=== PATIENT | female | born 1970 | race Hispanic/Latino ===

== ENCOUNTER 2022-06-02 23:21 | Emergency (ER) | payer SELFPAY ==
[2022-06-03 01:14] LABS: Absolute Lymphocytes (CBC) 2.6 K/uL (0.7-4.9); Hematocrit 42.5 % (36.0-45.0); Lymphocytes % 21.4 % (15.3-44.8); MPV 7.3 fL (7.6-11.3); RBC Red Blood Cell Count 4.72 M/uL (3.86-4.86)
[2022-06-03 01:31] LABS: Potassium 3.4 mmol/L (3.5-5.1); Troponin High Sensitivity 21.4 pg/mL (<58.9)
[2022-06-03] MEDS ORDERED: HYDRALAZINE HCL 20 MG/ML VIAL ONE (01:39)
[2022-06-03] MEDS ORDERED: NA CHLORIDE 0.9% 500 ML ONE (02:16)
[2022-06-03] MEDS ORDERED: METOPROLOL TARTRATE 5 MG/5 ML INJ IV ONE (02:44)
[2022-06-03] MEDS ORDERED: ACETAMINOPHEN 500 MG TAB ONE (03:41)
[2022-06-03] MEDS ORDERED: METOPROLOL TAR 50 MG TAB ONE (03:48)
--- NOTE | 2022-06-03 05:52 | EDPHYS ---
Physician Documentation [facility] Name: Evelyn Nunez Age: 51 yrs Sex: Female : 1970 Arrival Date: 06/02/2022 Time: 23:25 Bed 7 Private MD: ED Physician Jeramy Vizcaino HPI: 06/03 05:53 This 51 yrs old Female presents to ER via Ambulatory with complaints of High kdr Blood Pressure. 05:53 The patient has elevated blood pressure and discovered this at home. Onset: The kdr symptoms/episode began/occurred at an unknown time. Modifying factors: The symptoms are aggravated by Managing medications, she was recent recently started on amlodipine which has caused her blood pressure to increase. Associated signs and symptoms: Pertinent positives: headache, Pertinent negatives: chest pain, dizziness, dyspnea, lightheadedness, nausea. Severity of symptoms: At its worst the blood pressure was moderate, severe, just prior to arrival, in the emergency department the blood pressure is improved, mildly. The patient has experienced similar episodes in the past, a few times. The patient has been recently seen by a physician: Dr. Pulliam. 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 - Social history:: Smoking status: Patient denies any tobacco usage or history of. ROS: 05:53 Constitutional: Negative for fever, chills, and weight loss, Eyes: Negative for injury, kdr pain, redness, and discharge, Neck: Negative for injury, pain, and swelling, Cardiovascular: Negative for chest pain, palpitations, and edema, Respiratory: Negative for shortness of breath, cough, wheezing, and pleuritic chest pain, Abdomen/GI: Negative for abdominal pain, nausea, vomiting, diarrhea, and constipation, Back: Negative for injury and pain, : Negative for injury, bleeding, discharge, and swelling, MS/Extremity: Negative for injury and deformity, Skin: Negative for injury, rash, and discoloration, Neuro: Negative for headache, weakness, numbness, tingling, and seizure activity. Psych: Negative for depression, anxiety, suicide ideation, homicidal ideation, and hallucinations, Allergy/Immunology: Negative for hives, rash, and allergies, Endocrine: Negative for neck swelling, polydipsia, polyuria, polyphagia, and marked weight changes, Hematologic/Lymphatic: Negative for swollen nodes, abnormal bleeding, and unusual bruising. 05:53 Neuro: Positive for headache. Exam: 05:56 Constitutional: This is a well developed, well nourished patient who is awake, alert, kdr and in no acute distress. Head/Face: Normocephalic, atraumatic. Eyes: Pupils equal round and reactive to light, extra-ocular motions intact. Lids and lashes normal. Conjunctiva and sclera are non-icteric and not injected. Cornea within normal limits. Periorbital areas with no swelling, redness, or edema. Neck: Trachea midline, no thyromegaly or masses palpated, and no cervical lymphadenopathy. Supple, full range of motion without nuchal rigidity, or vertebral point tenderness. No Meningismus. Chest/axilla: Normal chest wall appearance and motion. Nontender with no deformity. No lesions are appreciated. Cardiovascular: Regular rate and rhythm with a normal S1 and S2. No gallops, murmurs, or rubs. Normal PMI, no JVD. No pulse deficits. Respiratory: Lungs have equal breath sounds bilaterally, clear to auscultation and percussion. No rales, rhonchi or wheezes noted. No increased work of breathing, no retractions or nasal flaring. Abdomen/GI: Soft, non-tender, with normal bowel sounds. No distension or tympany. No guarding or rebound. No evidence of tenderness throughout. Back: No spinal tenderness. No costovertebral tenderness. Full range of motion. Skin: Warm, dry with normal turgor. Normal color with no rashes, no lesions, and no evidence of cellulitis. MS/ Extremity: Pulses equal, no cyanosis. Neurovascular intact. Full, normal range of motion. Neuro: Awake and alert, GCS 15, oriented to person, place, time, and situation. Cranial nerves II-XII grossly intact. Motor strength 5/5 in all extremities. Sensory grossly intact. Cerebellar exam normal. Normal gait. Psych: Awake, alert, with orientation to person, place and time. Behavior, mood, and affect are within normal limits. 07:05 ECG was reviewed by the Attending Physician. kdr Vital Signs: 00:07 BP 195 / 104; Pulse 90; Resp 20; Temp 98.2; Pulse Ox 100% ; Weight 61.69 kg; Height 4 bh1 ft. 11 in. (149.86 cm); Pain 0/10; 01:29 BP 201 / 97; Pulse 81; Resp 18; Pulse Ox 99% on R/A; kd3 02:14 BP 182 / 91; Pulse 134; Resp 21; Pulse Ox 100% on R/A; kd3 05:39 BP 117 / 61; Pulse 79; Resp 18; Pulse Ox 95% on R/A; kd3 00:07 Body Mass Index 27.47 (61.69 kg, 149.86 cm) 1 MDM: 05:51 Patient medically screened. kdr 05:56 Data reviewed: vital signs, nurses notes, lab test result(s), radiologic studies. ED kdr course: Initially attempted to use hydralazine to control her blood pressure however she felt poorly after that and her blood pressure in fact elevated. 06/03 00:32 Order name: Basic Metabolic Panel; Complete Time: 02:08 kdr 06/03 00:32 Order name: CBC with Diff; Complete Time: 02:08 kdr 06/03 00:32 Order name: NT PRO-BNP; Complete Time: 02:08 kdr 06/03 00:32 Order name: Troponin HS; Complete Time: 02:08 kdr 06/03 00:32 Order name: XRAY Chest (1 view) kdr 06/03 02:11 Order name: D-Dimer; Complete Time: 04:09 kd3 06/03 00:32 Order name: EKG; Complete Time: 00:34 kdr 06/03 00:32 Order name: Cardiac monitoring; Complete Time: 01:01 kdr 06/03 01:25 Order name: CT Head Brain wo Cont kdr 06/03 00:32 Order name: EKG - Nurse/Tech; Complete Time: 01:29 kdr 06/03 00:32 Order name: IV Saline Lock; Complete Time: 01:01 kdr 06/03 00:32 Order name: Labs collected and sent; Complete Time: 01:01 kdr 06/03 00:32 Order name: O2 Per Protocol; Complete Time: kdr 06/03 00:32 Order name: O2 Sat Monitoring; Complete Time: kdr EC:05 Rate is 69 beats/min. Rhythm is regular, Sinus Rhythm with No ectopy. QRS Willis is kdr Normal. MS interval is normal. QRS interval is normal. QT interval is normal. Clinical impression: NSR w/ Non-specific ST/T Changes. Administered Medications: 01:35 Drug: hydrALAZINE 20 mg Route: IVP; Site: right forearm; kd3 02:13 Drug: NS 0.9% 500 ml Route: IV; Rate: bolus; Site: right antecubital; kd3 02:40 Drug: Lopressor (metoprolol) 5 mg {Note: pulse 127 BP 183/91.} Route: IVP; Site: right kl forearm; 02:49 Drug: Lopressor (metoprolol) 5 mg {Note: pulse 95 BP 163/92.} Route: IVP; Site: right kl forearm; 03:41 Drug: Lopressor (metoprolol TARTRATE) 50 mg Route: PO; kl 03:42 Drug: Tylenol 1000 mg Route: PO; Disposition Summary: 06/03/22 05:51 Discharge Ordered Location: Home kdr Problem: an acute exacerbation kdr Symptoms: have improved kdr Condition: Stable kdr Diagnosis - Hypertensive heart disease without heart failure kdr Followup: kdr - With: Private Physician - When: 2 - 3 days - Reason: If symptoms return, Further diagnostic work-up, Recheck today's complaints, Continuance of care, Re-evaluation by your physician Discharge Instructions: - Discharge Summary Sheet kdr - Hypertension, Adult, [id number] kdr Forms: - Medication Reconciliation Form kdr - Thank You Letter kdr Prescriptions: - Lopressor 50 mg Oral Tablet - take 1 tablet by ORAL route every 24 hours; 30 tablet; Refills: 0, Product kdr Selection Permitted Signatures: Dispatcher [employer] Brittani Mac RN RN kl Rittger, Kevin, MD MD kdr Doucette, Kyli, RN RN [email or web address] Huong Vasquez PA PA [email or web address] Leida Mejia RN RN bh1
--- NOTE | 2022-06-03 05:52 | ER ---
Nurse's Notes [facility] Name: Evelyn Nunez Age: 51 yrs Sex: Female : 1970 Arrival Date: 06/02/2022 Time: 23:25 Bed 7 Private MD: Diagnosis: Hypertensive heart disease without heart failure Presentation: 06/03 00:04 Chief complaint: Patient states: ELEVATED BP AT HOME. Coronavirus screen: Vaccine [facility] status: Patient reports being unvaccinated. At this time, the client does not indicate any symptoms associated with coronavirus-19. Ebola Screen: Patient negative for fever greater than or equal to 101.5 degrees Fahrenheit, and additional compatible Ebola Virus Disease symptoms. Initial Sepsis Screen: Does the patient meet any 2 criteria? No. Patient's initial sepsis screen is negative. Does the patient have a suspected source of infection? No. Patient's initial sepsis screen is negative. Risk Assessment: Do you want to hurt yourself or someone else? Patient reports no desire to harm self or others. Onset of symptoms was June 03, 2022. 00:04 Method Of Arrival: Ambulatory [facility] 00:04 Acuity: ISIS 3 [facility] Triage Assessment: 00:05 General: Appears in no apparent distress. Behavior is calm, cooperative, appropriate [facility] for age. Pain: Complains of pain in HEADACHE. 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 - Social history:: Smoking status: Patient denies any tobacco usage or history of. Screenin:30 Abuse screen: Denies threats or abuse. Denies injuries from another. Nutritional kd3 screening: No deficits noted. Tuberculosis screening: No symptoms or risk factors identified. Fall Risk IV access (20 points). Assessment: 01:01 General: Appears in no apparent distress. comfortable, Behavior is calm, cooperative. kl Pain: Denies pain. Neuro: No deficits noted. Carmen Agitation-Sedation Scale (RASS): 0 - Alert and Calm Level of Consciousness is awake, alert, obeys commands, Oriented to person, place, time, situation, Systems Operator are equal bilaterally Moves all extremities. Gait is steady. Cardiovascular: No deficits noted. Denies chest pain. Respiratory: No deficits noted. Reports Airway is patent Trachea midline Respiratory effort is even, unlabored, Respiratory pattern is regular, symmetrical. GI: No deficits noted. No signs and/or symptoms were reported involving the gastrointestinal system. : No deficits noted. No signs and/or symptoms were reported regarding the genitourinary system. EENT: No deficits noted. No signs and/or symptoms were reported regarding the EENT system. Derm: No deficits noted. No signs and/or symptoms reported regarding the dermatologic system. Musculoskeletal: No deficits noted. No signs and/or symptoms reported regarding the musculoskeletal system. Vital Signs: 00:07 BP 195 / 104; Pulse 90; Resp 20; Temp 98.2; Pulse Ox 100% ; Weight 61.69 kg; Height 4 1 ft. 11 in. (149.86 cm); Pain 0/10; 01:29 BP 201 / 97; Pulse 81; Resp 18; Pulse Ox 99% on R/A; kd3 02:14 BP 182 / 91; Pulse 134; Resp 21; Pulse Ox 100% on R/A; kd3 05:39 BP 117 / 61; Pulse 79; Resp 18; Pulse Ox 95% on R/A; kd3 00:07 Body Mass Index 27.47 (61.69 kg, 149.86 cm) [facility] ED Course: 06/02 23:25 Patient arrived in ED. bp1 06/03 00:05 Triage completed. bh1 00:05 Arm band placed on right wrist. bh1 00:31 Jeramy Vizcaino MD is Attending Physician. kdr 00:32 Mary Grace Hurtado RN is Primary Nurse. kd3 01:01 Basic Metabolic Panel Sent. kl 01:01 CBC with Diff Sent. kl 01:01 NT PRO-BNP Sent. kl 01:01 Troponin HS Sent. kl 01:03 Inserted saline lock: 20 gauge in right forearm, using aseptic technique. kl 01:09 XRAY Chest (1 view) In Process Unspecified. EDMS 01:30 Patient has correct armband on for positive identification. kd3 01:30 No provider procedures requiring assistance completed. kd3 02:33 CT Head Brain wo Cont In Process Unspecified. EDMS 06:05 IV discontinued, intact, bleeding controlled, No redness/swelling at site. Pressure kl dressing applied. Administered Medications: 01:35 Drug: hydrALAZINE 20 mg Route: IVP; Site: right forearm; kd3 02:13 Drug: NS 0.9% 500 ml Route: IV; Rate: bolus; Site: right antecubital; kd3 02:40 Drug: Lopressor (metoprolol) 5 mg {Note: pulse 127 BP 183/91.} Route: IVP; Site: right kl forearm; 02:49 Drug: Lopressor (metoprolol) 5 mg {Note: pulse 95 BP 163/92.} Route: IVP; Site: right kl forearm; 03:41 Drug: Lopressor (metoprolol TARTRATE) 50 mg Route: PO; kl 03:42 Drug: Tylenol 1000 mg Route: PO; kl Medication: 01:30 VIS not applicable for this client. kd3 Outcome: 05:51 Discharge ordered by . kdr 06:05 Discharged to home ambulatory, with family. kl 06:05 Condition: improved 06:05 Discharge instructions given to patient, Instructed on discharge instructions, follow up and referral plans. medication usage, Demonstrated understanding of instructions, follow-up care, medications, Prescriptions given X 1. 06:05 Patient left the ED. kl Signatures: Dispatcher [employer] EDMS Brittani Webb RN RN kl Rittger, Kevin, MD MD [facility] Josee Hernández Kyli, RN RN 3 Leida Mejia RN RN 1
[2022-06-03 08:44] VITALS: TEMP 98.2
[2022-06-03 08:53] VITALS: BP 117/61; O2SAT 95
--- NOTE | 2022-06-03 13:01 | EKG ---
Test Date: 2022-06-03 Test Time: 02:20:23 Survey Associate: VINI MEASUREMENT RESULTS: Intervals: Rate: 127 ID: [id number] QRSD: 76 QT: 406 QTc: 590 [place]: P: 73 ID: [id number] QRS: 57 T: 64 INTERPRETIVE STATEMENTS: Sinus tachycardia Nonspecific ST and T wave abnormality Abnormal ECG Compared to ECG 06/03/2022 01:29:30 ST (T wave) deviation now present Sinus rhythm no longer present Myocardial infarct finding no longer present Electronically Signed On 06-03-22 13:01:24 CDT by Luther Estrada
--- NOTE | 2022-06-03 13:02 | EKG ---
Test Date: 2022-06-03 Test Time: 01:29:30 Director Biologics: VINI MEASUREMENT RESULTS: Intervals: Rate: 69 AR: 174 QRSD: 80 QT: 400 QTc: 428 [place]: P: 49 AR: 174 QRS: 41 T: 57 INTERPRETIVE STATEMENTS: Normal sinus rhythm Septal infarct, age undetermined Abnormal ECG Compared to ECG 10/22/2012 22:25:42 Myocardial infarct finding now present Electronically Signed On 06-03-22 13:01:30 CDT by Luther Estrada
--- NOTE | 2022-06-03 14:35 | RAD REPORT ---
EXAM DESCRIPTION: CT - Head Brain Wo Cont - 06/03/2022 4:27 am CLINICAL HISTORY: Headache, new or worsening COMPARISON: None Available. TECHNIQUE: Multiple helical axial tomographic images were obtained of the head without intravenous c ontrast. This exam was performed according to our departmental dose-optimization program, which inclu carrillo automated exposure control, adjustment of the mA and/or kV according to patient size and/or use o f iterative reconstruction technique. FINDINGS: There is no acute intracranial hemorrhage. No mass. No midline shift. No ventriculomegaly. Billings-white matter differentiation is maintained. Paranasal sinuses are clear. Mastoid air cells and middle ear spaces are clear. Orbits and orbital co ntents are unremarkable. Osseous structures are unremarkable. Surrounding soft tissues are unremarkable. IMPRESSION: No acute intracranial process. Electronically signed by: Parish Diehl MD 06/03/2022 3:25 AM CDT Due to temporary technical issues with the PACS/Fluency reporting system, reports are being signed by the in house radiologists without review as a courtesy to insure prompt reporting. The interpreting radiologist is fully responsible for the content of the report.
--- NOTE | 2022-06-03 14:42 | RAD REPORT ---
EXAM DESCRIPTION: RAD - Chest Single View - 06/03/2022 1:07 am CLINICAL HISTORY: The patient is 52 years old and is Female; HTN TECHNIQUE: Frontal view of the chest. COMPARISON: No relevant prior studies available. FINDINGS: Lungs: Unremarkable. No consolidation. Pleural space: Unremarkable. No pneumothorax. Heart: Unremarkable. Mediastinum: Unremarkable. Bones/joints: Unremarkable. IMPRESSION: No acute findings in the chest. Electronically signed by: Burke Macias MD 06/03/2022 1:20 AM CDT Due to temporary technical issues with the PACS/Fluency reporting system, reports are being signed by the in house radiologists without review as a courtesy to insure prompt reporting. The interpreting radiologist is fully responsible for the content of the report.
== END 2022-06-03 06:05 | disposition home or self-care (01) ==
LOC: ER 23:21
DX: I11.9 Hypertensive heart disease without heart failure (principal); I10 Essential (primary) hypertension
CPT/HCPCS: 36415; 70450; 71045; 80048; 83880; 84484; 85025; 85379; 93005; 96374; 96375; 99284; J0360; J7040